=== PATIENT | male | born 1975 | race Caucasian/White ===

== ENCOUNTER 2021-04-16 12:54 | Inpatient (IN) | payer OTHER ==
[2021-04-16 13:47] VITALS: BMI 31.8
[2021-04-16] MEDS ORDERED: MAGNESIUM HYDROX 2400MG/30ML ORAL SUSPENSION 30 ML CUP PO PRN (15:30)
[2021-04-16] MEDS ORDERED: LORazepam 1 MG TABLET PO PRN (15:30)
[2021-04-16] MEDS ORDERED: ONDANSETRON *ODT* 4 MG TABLET SL PRN (15:30)
[2021-04-16] MEDS ORDERED: ACETAMINOPHEN 325 MG TABLET (FP) PO PRN ×2 (15:30)
[2021-04-16] MEDS ORDERED: MENTHOL/PHENOL 1 EACH UD MM PRN (15:30)
[2021-04-16] MEDS ORDERED: IBUPROFEN 400 MG TABLET (FP) PO PRN (15:30)
[2021-04-16] MEDS ORDERED: BISMUTH SUBSALICYLATE 262 MG/15 ML BTL PO PRN (15:30)
[2021-04-16] MEDS ORDERED: METHOCARBAMOL 500 MG TABLET PO PRN (15:30)
[2021-04-16] MEDS ORDERED: MAGNESIUM CITRATE 300 ML BOTTLE PO PRN (15:30)
[2021-04-16] MEDS ORDERED: MAG HYDROX/AL HYDROX/SIMETH 30 ML UNIT-DOSE CUP PO PRN (15:30)
[2021-04-16] MEDS ORDERED: MINERAL OIL/PETROLAT/WATER TOPICAL CREAM 113 GM JAR TP PRN (15:32)
[2021-04-16] MEDS: LORazepam 2 MG TABLET PO SCH ×2 (17:17→22:12)
[2021-04-16] MEDS: hydrOXYzine PAMOATE 25 MG CAPSULE (FP) PO SCH ×2 (17:18→22:12)
[2021-04-16] MEDS: THIAMINE HCL 100 MG TABLET (FP) PO SCH (22:12)
[2021-04-16] MEDS: MELATONIN 5 MG TABLETS PO SCH (22:14)
[2021-04-17] MEDS: LORazepam 2 MG TABLET PO SCH ×4 (06:21→21:59)
[2021-04-17] MEDS: hydrOXYzine PAMOATE 25 MG CAPSULE (FP) PO SCH ×5 (06:21→21:57)
[2021-04-17] MEDS: methaDONE HCL 40 MG DISPERSABLE TABLET PO SCH (09:05)
[2021-04-17] MEDS ORDERED: PRENATAL VITAMINS W/ FOLIC ACID TABLET (FP) PO SCH (10:00)
[2021-04-17 10:51] LABS: HEMATOCRIT 36.2 % (35.4-49); HEMOGLOBIN 12.2 GM/dL (11.7-16.9); MCH 26.3 pg (25.7-33.7); MCHC 33.6 g/dl (32.0-35.9); MEAN CELL VOLUME 78.4 fl (80-96); MEAN PLT VOLUME 9.2 fl (7.5-11.1); PLATELET COUNT 179 10^3/uL (134-434); RBC 4.63 M/mm3 (4.00-5.60); RDW 14.4 % (11.9-15.9); WHITE BLOOD COUNT 6.3 K/mm3 (4.0-10.0)
[2021-04-17 11:09] LABS: ALBUMIN 3.6 g/dl (3.4-5.0); CALCIUM 8.8 mg/dL (8.5-10.1)
[2021-04-17 11:10] LABS: BLOOD UREA NITROGEN 9.6 mg/dL (7-18); TOT PROT 7.6 g/dl (6.4-8.2)
[2021-04-17 11:13] LABS: CREATININE 0.9 mg/dL (0.55-1.3)
[2021-04-17 11:14] LABS: BILIRUBIN,TOTAL 0.4 mg/dL (0.2-1)
[2021-04-17] MEDS: THIAMINE HCL 100 MG TABLET (FP) PO SCH (21:57)
[2021-04-17] MEDS: MELATONIN 5 MG TABLETS PO SCH (21:57)
[2021-04-18] MEDS ORDERED: LORazepam 1 MG TABLET PO SCH (05:00)
[2021-04-18] MEDS: methaDONE HCL 40 MG DISPERSABLE TABLET PO SCH (06:12)
[2021-04-18] MEDS: hydrOXYzine PAMOATE 25 MG CAPSULE (FP) PO SCH (06:15)
[2021-04-18 09:38] VITALS: BP 180/100; PULSE 88; TEMP 97.4
[2021-04-18] MEDS ORDERED: amLODIPine BESYLATE 10 MG TABLET (FP) PO SCH (10:00)
[2021-04-19] MEDS ORDERED: LORazepam 0.5 MG TABLET PO PRN
[2021-04-19] MEDS ORDERED: LORazepam 0.5 MG TABLET PO SCH (05:00)
[2021-04-20] MEDS ORDERED: LORazepam 0.5 MG TABLET PO ONE (05:00)
== END 2021-04-18 09:46 | disposition home or self-care (01) | DRG 773 ==
LOC: YASAS 12:54 → Y6N 15:03
PROVIDERS: ADMIT Allergy & Immunology; ATTEND Allergy & Immunology
PROC: HZ2ZZZZ Detoxification Services for Substance Abuse Treatment (ICD-10-PCS; principal; 2021-04-16)
DX: F10.230 Alcohol dependence with withdrawal, uncomplicated (principal); F11.20 Opioid dependence, uncomplicated; F14.20 Cocaine dependence, uncomplicated; F19.24 Other psychoactive substance dependence with psychoactive substance-induced mood disorder; F19.282 Other psychoactive substance dependence with psychoactive substance-induced sleep disorder; F20.9 Schizophrenia, unspecified; I10 Essential (primary) hypertension; I45.81 Long QT syndrome; R73.9 Hyperglycemia, unspecified; Z91.013 Allergy to seafood
CPT/HCPCS: 36415; 80053; 83735; 85027; 86780; 93005; 93010; C9803; U0003; U0005